=== PATIENT | female | born 1980 | race African-American/Black ===

== ENCOUNTER 2019-03-31 09:52 | Emergency (ER) | payer SELFPAY ==
[~2019-03-31] VITALS: Ht 170.2 cm; Wt 76.3 kg
--- OUTSIDE RECORDS SUMMARY | 2019-03-31 09:53 | XMS REPORT ---
[facility] Address Unknown Phone Unavailable Care Team Providers Care Cardiac Nurse Name Role Phone ERICK OTOOLE Unavailable Unavailable JEREMY MONTES Unavailable Unavailable Problems This patient has no known problems. Allergies, Adverse Reactions, Alerts This patient has no known allergies or adverse reactions. Medications This patient has no known medications. Encounters Start Date/Time End Date/Time Encounter Type Admission Type Attending Clinicians Care Facility Care Department Encounter ID 2019-03-28 17:45:00 2019-03-28 17:45:00 Emergency E [id number] Results Test Description Test Time Test Comments Text Results Atomic Results Result Comments U/S, PELVIS 2018-03-11 10:08:00 Reason for exam:->ABDOMINAL PAINAbdominal pain \T\ vaginal bleeding since morning Reason for exam:->VAGINAL BLEEDING Addendum BeginsREPORT STATUS:A Addendum:The left adnexa was visualized however the left ovary was not visualized. This may be secondary to overlying bowel gas, or prior surgical resection and clinical correlation is needed. Signed: Rae Guevara MDReport Verified Date/Time: 03/11/2018 10:08:42 Reading Location: [place] [address] Angio Body Reading RoomAddendum EndsFINAL REPORT Ultrasound of the pelvis: Clinical diagnosis: bleeding Comparison: no comparisonTechnique: Multiple transaxial and longitudinal images were obtained through the pelvis. 3 and 2.8 MHz transducer(s) was(were) utilized transabdominally and endovaginally. Color Doppler and spectral waveform analysis images were submitted to evaluate for blood flow. . 47 images were submitted for interpretation. Report: Uterus: The uterus measures 8.9 x 4.4 x 6.8 cm. The endometrial stripe measures 9 mm. Right Ovary: The right ovary measures 2.6 x 1.8 x 1.7 cm. Flow was documented. Left Ovary: Left ovary was not visualized. Free Fluid: none Impression:Unremarkable pelvic ultrasound. Signed: Rae Guevara MDReport Verified Date/Time: 02/27/2018 15:20:35 Reading Location: [facility] Radiology Reading Room GLOBIN 2018-02-27 14:22:00 HEMOGLOBIN (BEAKER) (test ilqr=145) 10.9 GM/DL 12.0-15.0 HCG, QUANTITATIVE, [id number] 12:58:00* Test Item Value Reference Range Comments GONADOTROPIN, CHORIONIC (HCG) QUANT (BEAKER) (test tcrg=605) < mIU/mL 0-10 Non- Females: <10 mIU/mL Females: Gestation Age Reference Range(mIU/mL) 0.2-1 Week 5-50 1-2 Weeks 50-500 2-3 Weeks 100-5,000 3-4 Weeks 500-10,000 4-5 Weeks 1,000-50,000 5-6 Weeks 10,000-100,000 6-8 Weeks 15,000-200,000 2-3 Months 10,000-100,000 If ordered by [facility] test will need to be sent to the Main lab for processing.[id number] 12:56:00* Test Item Value Reference Range Comments LIPASE (BEAKER) (test nbey=456) 20 U/L 6-51 COMPREHENSIVE METABOLIC [id number] 12:55:00* Test Item Value Reference Range Comments TOTAL PROTEIN (BEAKER) (test wunz=062) 7.1 gm/dL 6.0-8.5 ALBUMIN (BEAKER) (test eafn=1017) 4.3 g/dL 3.5-5.0 ALKALINE PHOSPHATASE (BEAKER) (test bsgg=193) 70 U/L 30-115 BILIRUBIN TOTAL (BEAKER) (test jbnv=870) 0.4 mg/dL 0.1-1.2 SODIUM (BEAKER) (test jciq=787) 140 meq/L 135-148 POTASSIUM (BEAKER) (test szgl=976) 3.7 meq/L 3.6-5.5 CHLORIDE (BEAKER) (test zeif=509) 106 meq/L 98-106 CO2 (BEAKER) (test blne=539) 26 meq/L 20-29 BLOOD UREA NITROGEN (BEAKER) (test zgzy=729) 10 mg/dL 10-26 CREATININE (BEAKER) (test kvwx=997) 0.72 mg/dL 0.50-1.20 GLUCOSE RANDOM (BEAKER) (test nmtn=789) 93 mg/dL 70-110 CALCIUM (BEAKER) (test oktw=320) 9.3 mg/dL 8.5-10.5 AST (SGOT) (BEAKER) (test glpr=328) 15 U/L 5-40 ALT (SGPT) (BEAKER) (test epni=951) 18 U/L 5-50 EGFR (BEAKER) (test vpoc=6209) 91 mL/min/1.73 sq m ESTIMATED GFR IS NOT ACCURATE CREATININE CLEARANCE IN PREDICTING GLOMERULAR FILTRATION RATE. ESTIMATED GFR IS NOT APPLICABLE FOR DIALYSIS PATIENTS. URINALYSIS W/ REFLEX URINE [id number] 12:50:00* Test Item Value Reference Range Comments COLOR (BEAKER) (test dixh=207) Yellow CLARITY (BEAKER) (test bigz=967) Clear SPECIFIC GRAVITY UA (BEAKER) (test qwac=341) 1.020 1.001-1.035 PH UA (BEAKER) (test qtvb=315) 7.0 5.0-8.0 PROTEIN UA (BEAKER) (test sifz=036) Trace Negative GLUCOSE UA (BEAKER) (test eqiz=929) Negative Negative KETONES UA (BEAKER) (test gibv=110) Negative Negative BILIRUBIN UA (BEAKER) (test lgpz=619) Negative Negative BLOOD UA (BEAKER) (test iomw=059) Large Negative NITRITE UA (BEAKER) (test cqpv=195) Negative Negative LEUKOCYTE ESTERASE UA (BEAKER) (test kgxf=279) Negative Negative UROBILINOGEN UA (BEAKER) (test syid=651) 0.2 mg/dL 0.2-1.0 BACTERIA (BEAKER) (test dzjr=380) Few RBC UA-MANUAL (BEAKER) (test ernq=6847) 5-10 /HPF WBC UA-MANUAL (BEAKER) (test enrz=1321) <5 /HPF SQUAMOUS EPITHELIAL MANUAL (BEAKER) (test nigw=6170) 5-10 /HPF SOURCE(BEAKER) (test mzsu=8199) CBC W/PLT COUNT & AUTO [id number] 12:44:00* Test Item Value Reference Range Comments WHITE BLOOD CELL COUNT (BEAKER) (test yhbn=022) 5.5 K/ L 4.0-10.0 RED BLOOD CELL COUNT (BEAKER) (test cmpv=501) 4.00 M/ L 4.00-5.00 HEMOGLOBIN (BEAKER) (test qaap=393) 12.7 GM/DL 12.0-15.0 HEMATOCRIT (BEAKER) (test xetm=844) 38.8 % 36.0-45.0 MEAN CORPUSCULAR VOLUME (BEAKER) (test ktpx=283) 97.0 fL 82.0-99.0 MEAN CORPUSCULAR HEMOGLOBIN (BEAKER) (test mpin=137) 31.8 pg 27.0-33.0 MEAN CORPUSCULAR HEMOGLOBIN CONC (BEAKER) (test xptb=865) 32.8 GM/DL 32.0-36.0 RED CELL DISTRIBUTION WIDTH (BEAKER) (test kdzg=587) 14.5 % 10.3-14.2 PLATELET COUNT (BEAKER) (test fjuj=845) 327 K/CU MM 150-430 MEAN PLATELET VOLUME (BEAKER) (test wxfk=764) 8.3 fL 6.5-10.5 NUCLEATED RED BLOOD CELLS (BEAKER) (test mprw=593) 0 /100 WBC 0-0 NEUTROPHILS RELATIVE PERCENT (BEAKER) (test fjlf=122) 64 % LYMPHOCYTES RELATIVE PERCENT (BEAKER) (test rozx=450) 29 % MONOCYTES RELATIVE PERCENT (BEAKER) (test uyvl=548) 6 % EOSINOPHILS RELATIVE PERCENT (BEAKER) (test dirs=273) 0 % BASOPHILS RELATIVE PERCENT (BEAKER) (test sxye=006) 1 % NEUTROPHILS ABSOLUTE COUNT (BEAKER) (test wqih=798) 3.50 K/ L 1.80-8.00 LYMPHOCYTES ABSOLUTE COUNT (BEAKER) (test zwlb=910) 1.60 K/ L 1.48-4.50 MONOCYTES ABSOLUTE COUNT (BEAKER) (test lgjs=026) 0.30 K/ L 0.00-1.30 EOSINOPHILS ABSOLUTE COUNT (BEAKER) (test gvad=760) 0.00 K/ L 0.00-0.50 BASOPHILS ABSOLUTE COUNT (BEAKER) (test srlt=766) 0.00 K/ L 0.00-0.20 HCG, QUANTITATIVE, [id number] 03:39:00* Test Item Value Reference Range Comments GONADOTROPIN, CHORIONIC (HCG) QUANT (BEAKER) (test yuhx=063) < mIU/mL 0-10 Non- Females: <10 mIU/mL Females: Gestation Age Reference Range(mIU/mL) 0.2-1 Week 5-50 1-2 Weeks 50-500 2-3 Weeks 100-5,000 3-4 Weeks 500-10,000 4-5 Weeks 1,000-50,000 5-6 Weeks 10,000-100,000 6-8 Weeks 15,000-200,000 2-3 Months 10,000-100,000 BASIC METABOLIC PANEL 2016-12-03 02:22:00* Test Item Value Reference Range Comments SODIUM (BEAKER) (test swpm=531) 140 meq/L 135-148 POTASSIUM (BEAKER) (test datr=188) 3.4 meq/L 3.6-5.5 CHLORIDE (BEAKER) (test xlvb=174) 104 meq/L 98-106 CO2 (BEAKER) (test bxec=549) 25 meq/L 24-32 BLOOD UREA NITROGEN (BEAKER) (test qqjp=008) 10 mg/dL 10-26 CREATININE (BEAKER) (test ixbf=937) 0.47 mg/dL 0.50-1.20 GLUCOSE RANDOM (BEAKER) (test emhr=954) 108 mg/dL 70-110 CALCIUM (BEAKER) (test rfcb=617) 8.6 mg/dL 8.5-10.5 EGFR (BEAKER) (test zzpt=4571) 149 mL/min/1.73 sq m ESTIMATED GFR IS NOT ACCURATE CREATININE CLEARANCE IN PREDICTING GLOMERULAR FILTRATION RATE. ESTIMATED GFR IS NOT APPLICABLE FOR DIALYSIS PATIENTS. Used non-hemolyzed sample.URINALYSIS W/ [id number] 02:19:00* Test Item Value Reference Range Comments COLOR (BEAKER) (test lyij=367) Dark Yellow CLARITY (BEAKER) (test wjby=477) Slightly Cloudy SPECIFIC GRAVITY UA (BEAKER) (test vyce=752) 1.037 1.001-1.035 Refractometer=1.037 PH UA (BEAKER) (test oujg=795) 5.5 5.0-8.0 PROTEIN UA (BEAKER) (test qgaq=719) 30 mg/dL Negative GLUCOSE UA (BEAKER) (test zotc=361) Negative Negative KETONES UA (BEAKER) (test alqy=126) Negative Negative BILIRUBIN UA (BEAKER) (test kfjv=902) Positive Negative BLOOD UA (BEAKER) (test ufpt=299) Large Negative NITRITE UA (BEAKER) (test dtob=646) Negative Negative LEUKOCYTE ESTERASE UA (BEAKER) (test dede=727) Negative Negative UROBILINOGEN UA (BEAKER) (test wobx=650) 0.2 mg/dL 0.2-1.0 BACTERIA (BEAKER) (test ppbs=433) Few MUCUS (BEAKER) (test mzuc=4307) Moderate RBC UA-MANUAL (BEAKER) (test fflr=4960) 10-20 /HPF WBC UA-MANUAL (BEAKER) (test hxso=3273) <5 /HPF SQUAMOUS EPITHELIAL MANUAL (BEAKER) (test nwrv=1982) 5-10 /HPF SOURCE(BEAKER) (test krwe=4164) Volume of specimen received in [facility] lab was 3 cc.CBC W/PLT COUNT & AUTO [id number] 02:14:00* Test Item Value Reference Range Comments WHITE BLOOD CELL COUNT (BEAKER) (test vswz=238) 7.8 10e3/ L 4.0-10.0 RED BLOOD CELL COUNT (BEAKER) (test agcv=223) 3.72 10e6/ L 4.00-5.00 HEMOGLOBIN (BEAKER) (test thgl=892) 12.1 g/dL 12.0-15.0 HEMATOCRIT (BEAKER) (test trck=830) 35.5 % 36.0-45.0 MEAN CORPUSCULAR VOLUME (BEAKER) (test unda=706) 95.5 fL 82.0-99.0 MEAN CORPUSCULAR HEMOGLOBIN (BEAKER) (test dsxw=378) 32.6 pg 27.0-33.0 MEAN CORPUSCULAR HEMOGLOBIN CONC (BEAKER) (test hhuh=044) 34.1 g/dL 32.0-36.0 RED CELL DISTRIBUTION WIDTH (BEAKER) (test tkld=721) 11.5 % 10.3-14.2 PLATELET COUNT (BEAKER) (test euqn=364) 307 10e3/ L 150-430 MEAN PLATELET VOLUME (BEAKER) (test xvgx=506) 7.4 fL 6.5-10.5 NEUTROPHILS RELATIVE PERCENT (BEAKER) (test oflq=565) 68 % LYMPHOCYTES RELATIVE PERCENT (BEAKER) (test prow=575) 26 % MONOCYTES RELATIVE PERCENT (BEAKER) (test tybs=099) 4 % EOSINOPHILS RELATIVE PERCENT (BEAKER) (test novr=651) 1 % BASOPHILS RELATIVE PERCENT (BEAKER) (test hkic=609) 0 % NEUTROPHILS ABSOLUTE COUNT (BEAKER) (test rlrg=734) 5.30 10e3/ L 1.80-8.00 LYMPHOCYTES ABSOLUTE COUNT (BEAKER) (test uria=690) 2.06 10e3/ L 1.48-4.50 MONOCYTES ABSOLUTE COUNT (BEAKER) (test cvkj=862) 0.34 10e3/ L 0.00-1.30 EOSINOPHILS ABSOLUTE COUNT (BEAKER) (test jnta=181) 0.07 10e3/ L 0.00-0.50 BASOPHILS ABSOLUTE COUNT (BEAKER) (test ldlp=305) 0.03 10e3/ L 0.00-0.20
--- OUTSIDE RECORDS SUMMARY | 2019-03-31 09:53 | XMS REPORT | Clinical Summary ---
Author Author [facility] Address Unknown Phone Unavailable Care Team Providers Care Director Medical Surgical Name Role Phone Nnamdi Gresham PCP Allergies Comments Active Allergy Reactions Severity Noted Date Cyclobenzaprine 02/27/2018 Naproxen 02/27/2018 Tramadol 02/27/2018 Medications End Date Status Medication Sig Dispensed Refills Start Date Active naproxen (NAPROSYN) 500 Take 1 tablet 15 tablet 0 08/16/201 MG tablet (500 mg 6 total) by mouth every 12 (twelve) hours as needed. Active ALBUTEROL INHL Inhale by 0 mouth via inhaler. Active BUPROPION HCL (WELLBUTRIN Take by 0 ORAL) mouth. Active ALPRAZOLAM ORAL Take by 0 mouth. Active naproxen (NAPROSYN) 500 Take 1 tablet 10 tablet 0 12/03/201 MG tablet twice daily 7 with meals as needed for pain.. Active Problems Not on file Social History Date Tobacco Use Types Packs/Day Years Used Never Smoker Smokeless Tobacco: Never Used Alcohol Use Drinks/Week oz/Week Comments No Sex Assigned at Date Recorded Not on file Industry Job Start Date Occupation Not on file Not on file Not on file Travel End Travel History Travel Start No recent travel history available. Last Filed Vital Signs Not on file Plan of Treatment Not on file Results Not on fileafter 03/30/2018 Insurance Payer Benefit Subscriber ID Type Phone Address Plan / Group PENDING MEDICAID-OTHER EES PENDING MEDICAID Guarantor Name Account Relation to Date of Phone Billing Address Type Patient Angelia Alfonso Personal/F Self 1980 [id number] [place] [address]
[2019-03-31] MEDS ORDERED: DIAZEPAM 5 MG TAB PO PRN (10:00)
[2019-03-31] MEDS ORDERED: KETOROLAC TROMETHAMINE 60 MG/2 ML VIAL IM ONE (10:00)
[2019-03-31] MEDS ORDERED: IBUPROFEN400 MG PO (10:07)
[2019-03-31] MEDS ORDERED: XANAX2 MG PO (10:07)
[2019-03-31] MEDS ORDERED: FOLIC ACID1 MG PO (10:07)
[2019-03-31] MEDS ORDERED: SOMA350 MG PO (10:07)
[2019-03-31] MEDS ORDERED: PROAIR HFA INH8.5 GM (10:07)
--- NOTE | 2019-03-31 10:08 | NUR ---
EXTENSIVE MD EVAL DONE IN TRIAGE.
--- NOTE | 2019-03-31 10:14 | NUR ---
RADIOLOGY BEDSIDE AT THIS TIME
[2019-03-31] MEDS ORDERED: LIDOCAINE 5% PATCH TP ONE (10:35)
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
[2019-03-31 11:15] VITALS: BP 117/84
== END 2019-03-31 11:16 | disposition home or self-care (01) ==
LOC: ER 09:52
DX: S83.411A Sprain of medial collateral ligament of right knee, initial encounter (principal); S83.421A Sprain of lateral collateral ligament of right knee, initial encounter; V49.49XA Driver injured in collision with other motor vehicles in traffic accident, initial encounter; Y92.488 Other paved roadways as the place of occurrence of the external cause
CPT/HCPCS: 99283